=== PATIENT | male | born 1975 | race Caucasian/White ===

== ENCOUNTER → 2024-06-04 14:44 | Outpatient (CLI) | payer OTHER, SELFPAY ==
[2024-06-04 16:07] LABS: Alanine Aminotransferase 20 IU/L (<50); Albumin 3.7 g/dL (3.5-5.0); Albumin Globulin Ratio 1.8 (1.0-2.8); Alkaline Phosphatase 55 U/L (38-126); Aspartate Aminotransferase 27 IU/L (17-59); Bilirubin Total 0.5 mg/dL (0.2-1.3); Bilirubin Unconjugated 0.2 mg/dL (0.0-1.1); Globulin 2.1 g/dL (1.7-4.1); HEMOLYSIS < 15 (0-50); Total Protein 5.8 g/dL (6.3-8.2)
== END ==
PROVIDERS: Referring Provider Chiropractor; Visit Provider Chiropractor
DX: Q44.6 Cystic disease of liver (principal)
CPT/HCPCS: 36415; 80076

== ENCOUNTER 2024-06-04 15:11 | Emergency (ER) | payer OTHER, SELFPAY ==
[2024-06-04 15:14] VITALS: BP 126/81; PULSE 71; RESP 16; TEMP 36.6; O2SAT 97; BMI 23.8
--- NOTE | 2024-06-04 15:23 | EKG_ITS ---
[facility] [address] [place] [address] Test Date: 2024-06-04 Pat Name: Eleuterio Eubanks Department: [facility] Room: Gender: Male Sciences Dean: MAE : 1975 Requested By: Order Number: [id number] Reading MD: Everton Bain Measurements Intervals [place] Rate: 73 P: 74 WI: 156 QRS: 66 QRSD: 96 T: 37 QT: 378 QTc: 416 Interpretive Statements Normal sinus rhythm Nonspecific ST abnormality Electronically Signed On 06-06-2024 7:40:56 PDT by Everton Bain
--- NOTE | 2024-06-04 15:43 | DI.RAD.S_ITS ---
PROCEDURE: XR CHEST 1V INDICATIONS: Shortness of breath TECHNIQUE: One view of the chest was acquired. COMPARISON: None. FINDINGS: Mild bilateral perihilar and lower lobe peribronchial thickening some of which may be related to expiratory result however bronchitis, viral infection, asthma or other process could be considered. No pneumothorax, no pleural effusion, no focal consolidation. Cardiopericardial silhouette and pulmonary vasculature within normal limits. IMPRESSION: Mild bilateral perihilar and lower lobe peribronchial thickening as discussed above. Follow-up suggested. If symptoms persist or worsen, CT chest could be performed. Dictated by: Sav Kebede M.D. on 06/04/2024 at 16:52 Approved by: Sav Kebede M.D. on 06/04/2024 at 16:54
[2024-06-04 16:10] VITALS: PULSE 76; O2SAT 98
[2024-06-04 16:13] VITALS: BP 130/79; PULSE 69; RESP 17; O2SAT 98
[2024-06-04 16:30] VITALS: BP 126/80; PULSE 66; RESP 16; O2SAT 98
--- NOTE | 2024-06-04 16:45 | ED_ITS ---
HPI - Chest Pain General Chief Complaint: Chest Pain Stated Complaint: SoB, Tightening in Chest after exercise Time Seen by Provider: 06/04/24 15:43 Source: patient Mode of arrival: Family Vehicle Limitations: no limitations History of Present Illness HPI narrative: Patient is an otherwise healthy 49-year-old male who is here for evaluation of shortness of breath and tightness in his chest. He states yesterday he donated plasma. States immediately afterwards he went on a mountain bike ride. He does state that the ride was rather strenuous but he was done this in the past. When he was on the ride he developed some nausea. A metallic taste in his mouth. Some chest pressure. No fevers. His symptoms have greatly improved but he was still having some tightness in his chest. No problems breathing. No lower extremity swelling. Review of Systems Review of Systems ROS Unobtainable: All systems reviewed & are unremarkable except as noted in HPI and below Exam Initial Vital Signs Initial Vital Signs: Vital Signs Temperature 97.8 F 06/04/24 15:14 Pulse Rate 71 06/04/24 15:14 Respiratory Rate 16 06/04/24 15:14 Blood Pressure 126/81 06/04/24 15:14 Pulse Oximetry 97 06/04/24 15:14 Oxygen Delivery Method Room Air 06/04/24 15:14 Const General: cooperative, comfortable and No ill appearing [facility] [place] Head: normal to inspection and normocephalic Resp Effort & Inspection: normal respiratory effort Auscultation: clear to auscultation bilaterally Cardio Rate: regular rate Rhythm: regular rhythm Skin General: no rashes or lesions noted Neuro General: patient alert, patient awake, patient oriented x3 and moves all extremities Extrem General: No edema Course Orders Ordered: ED Orders 06/04/24 15:23 EKG-12 Lead Stat 06/04/24 15:43 XR chest 1V Stat 06/04/24 16:28 Complete Blood Count AUTO DIFF Stat Comprehensive Metabolic Panel Stat Lipase Stat Magnesium Stat NT-proBNP (BNP-Adult 18+) Stat Troponin & CK Cardiac Panel Stat Vital Signs Vital signs: Vital Signs - 8 hr 06/04/24 15:14 06/04/24 16:10 06/04/24 16:13 Temperature 97.8 F Pulse Rate 71 76 69 Respiratory Rate 16 17 Blood Pressure 126/81 Pulse Oximetry 97 98 98 Oxygen Delivery Method Room Air 06/04/24 16:13 06/04/24 16:30 06/04/24 16:30 Temperature Pulse Rate 66 Respiratory Rate 16 Blood Pressure 130/79 126/80 Pulse Oximetry 98 Oxygen Delivery Method Room Air MDM - Chest Pain Lab Data Attestation: I reviewed the patient's lab results. 06/04/24 16:28 06/04/24 16:28 Labs: Lab Results 06/04/24 06/04/24 Range/Units 14:52 16:28 WBC 7.2 (4.5-11.0) X10^3/uL RBC 5.21 (4.5-5.9) X10^6/uL Hgb 15.1 (13.5-17.5) g/dL Hct 44.5 (41-53) % MCV 85.5 (80-100) fL MCH 29.1 (26-34) PG MCHC 34.0 (30-36) % RDW 13.2 (11.6-14.8) % Plt Count 240 (150-400) X10^3/uL Neut % (Auto) 55.2 (50-75) % Lymph % (Auto) 36.7 (25-40) % Banks % (Auto) 5.6 (3-14) % Eos % (Auto) 1.7 L (2-4) % Baso % (Auto) 0.8 (0-2) % Neut # (Auto) 4000 (5923-5501) /uL Lymph # (Auto) 2700 (2918-7638) /uL Banks # (Auto) 400 (0-900) /uL Eos # (Auto) 100 (0-450) /uL Baso # (Auto) 100 (0-100) /uL Sodium 138 (137-145) mmol/L Potassium 4.4 (3.4-5.1) mmol/L Chloride 105 (98-107) mmol/L Carbon Dioxide 28 (22-32) mmol/L BUN 16 (9-20) mg/dL Creatinine 0.98 (0.66-1.25) mg/dL Estimated GFR > 60 (>60) mL/min BUN/Creatinine Ratio 16.3 (6-22) Glucose 102 H (70-100) mg/dL Calcium 9.3 (8.4-10.2) mg/dL Magnesium 1.8 (1.6-2.3) mg/dL Total Bilirubin 0.4 (0.2-1.3) mg/dL AST 25 (17-59) IU/L ALT 20 (<50) IU/L Alkaline Phosphatase 56 (38-126) U/L Total Creatine Kinase 90 (55-170) U/L Troponin I Cancelled < 0.012 NT-Pro-B Natriuret Pep < 20 (<125) pg/mL Total Protein 6.0 L (6.3-8.2) g/dL Albumin 3.8 (3.5-5.0) g/dL Globulin 2.2 (1.7-4.1) g/dL Albumin/Globulin Ratio 1.7 (1.0-2.8) Lipase 139 (23-300) U/L Imaging Data Chest x-ray: Radiologist's Impression: PROCEDURE: XR CHEST 1V INDICATIONS: Shortness of breath TECHNIQUE: One view of the chest was acquired. COMPARISON: None. FINDINGS: Mild bilateral perihilar and lower lobe peribronchial thickening some of which may be related to expiratory result however bronchitis, viral infection, asthma or other process could be considered. No pneumothorax, no pleural effusion, no focal consolidation. Cardiopericardial silhouette and pulmonary vasculature within normal limits. IMPRESSION: Mild bilateral perihilar and lower lobe peribronchial thickening as discussed above. Follow-up suggested. If symptoms persist or worsen, CT chest could be performed. ECG Data Attestation: I personally reviewed and interpreted this ECG as follows: Interpretation: Sinus rhythm Ventricular rate is 73 Normal axis Normal QRS Nonspecific ST T wave changes MDM Narrative Medical decision making narrative: Chest x-ray shows no signs of pneumonia. Clinically he does not have pneumonia. Labs are unremarkable. EKG is unremarkable. Low suspicion for ACS. We did discuss the possibility of an infectious etiology although he has no other symptoms associated with this. No indication for antibiotics. Patient understands lack of a definitive diagnosis will discharge patient home with return precautions. He expressed understanding Discharge Plan Departure Patient Disposition: Home Clinical Impression: Chest pressure Instructions: DI for Atypical Chest Pain Activity Restrictions/Additional Instructions: Your workup here in the emergency department is very reassuring. I recommend that you take it easy for the next couple days. Be sure that you were increasing your fluid intake. Return to the emergency department for new or worsening symptoms. Stand Alone Forms: Patient Portal/API
[2024-06-04 16:46] LABS: Add Manual Diff / Slide Review NO; Basophils Absolute Auto 100 /uL (0-100); Basophils Percent Auto 0.8 % (0-2); Eosinophils Absolute Auto 100 /uL (0-450); Eosinophils Percent Auto 1.7 % (2-4); Hematocrit 44.5 % (41-53); Hemoglobin 15.1 g/dL (13.5-17.5); Lymphocytes Absolute Auto 2700 /uL (1100-4500); Lymphocytes Percent Auto 36.7 % (25-40); Mean Corpuscular Hemoglobin 29.1 PG (26-34); Mean Corpuscular Volume 85.5 fL (80-100); Monocytes Absolute Auto 400 /uL (0-900); Monocytes Percent Auto 5.6 % (3-14); Neutrophils Absolute Auto 4000 /uL (1500-7000); Neutrophils Percent Auto 55.2 % (50-75); Platelet Count 240 X10^3/uL (150-400); Red Blood Cell Count 5.21 X10^6/uL (4.5-5.9); Red Cell Distribution Width 13.2 % (11.6-14.8); White Blood Cell Count 7.2 X10^3/uL (4.5-11.0)
[2024-06-04 16:51] LABS: Alanine Aminotransferase 20 IU/L (<50); Albumin 3.8 g/dL (3.5-5.0); Albumin Globulin Ratio 1.7 (1.0-2.8); Alkaline Phosphatase 56 U/L (38-126); Aspartate Aminotransferase 25 IU/L (17-59); BUN Creatinine Ratio 16.3 (6-22); Bilirubin Total 0.4 mg/dL (0.2-1.3); Blood Urea Nitrogen 16 mg/dL (9-20); Calcium 9.3 mg/dL (8.4-10.2); Carbon Dioxide 28 mmol/L (22-32); Chloride 105 mmol/L (98-107); Creatine Kinase 90 U/L (55-170); Estimated Glomerular Filt Rate > 60 mL/min (>60); Globulin 2.2 g/dL (1.7-4.1); Glucose 102 mg/dL (70-100); Lipase 139 U/L (23-300); Magnesium 1.8 mg/dL (1.6-2.3); Potassium 4.4 mmol/L (3.4-5.1); Sodium 138 mmol/L (137-145)
[2024-06-04 17:00] VITALS: BP 127/74; PULSE 67; RESP 20; O2SAT 96
[2024-06-04 17:11] LABS: HEMOLYSIS < 15 (0-50); NT-proBNP (BNP-Adult 18+) < 20 pg/mL (<125); Troponin I < 0.012 ng/mL (0.01-0.034)
[2024-06-04 17:30] VITALS: BP 120/79; PULSE 60; RESP 16; O2SAT 97
== END 2024-06-04 17:45 | disposition home or self-care (01) ==
PROVIDERS: Emergency Provider Emergency Medicine
DX: R07.89 Other chest pain (principal); R06.02 Shortness of breath
CPT/HCPCS: 36415; 71045; 80053; 82550; 83690; 83735; 83880; 84484; 85025; 93005; 99283; 99284